=== PATIENT | female | born 1975 | race African-American/Black ===

== ENCOUNTER 2018-01-11 19:32 | Emergency (ER) | payer BC, MEDICAID ==
[~2018-01-11] VITALS: Ht 167.6 cm; Wt 57.0 kg
[2018-01-11] MEDS ORDERED: KETOROLAC 60MG/2ML VIAL IM ONE (21:30)
[2018-01-11] MEDS ORDERED: KETOROLAC 60MG/2ML VIAL IM NR (22:30)
[2018-01-11 23:16] VITALS: BP 128/82
== END 2018-01-11 23:17 | disposition home or self-care (01) ==
LOC: ER 19:32
DX: S16.1XXA Strain of muscle, fascia and tendon at neck level, initial encounter (principal); M79.642 Pain in left hand; M79.641 Pain in right hand; M19.90 Unspecified osteoarthritis, unspecified site; F17.200 Nicotine dependence, unspecified, uncomplicated; V49.40XA Driver injured in collision with unspecified motor vehicles in traffic accident, initial encounter; Y93.89 Activity, other specified; Y92.89 Other specified places as the place of occurrence of the external cause; Y99.8 Other external cause status
CPT/HCPCS: 72040; 81025; 96372; 99284; J1885

== ENCOUNTER 2018-02-03 17:09 | Emergency (ER) | payer BC, MEDICAID ==
[~2018-02-03] VITALS: Ht 165.1 cm; Wt 60.0 kg
[2018-02-03 17:14] VITALS: BP 117/81
[2018-02-03] MEDS ORDERED: ACETAMINOPHEN 325MG TABLET PO ONE (17:30)
== END 2018-02-03 19:17 | disposition left against medical advice (07) ==
LOC: ER 18:07
DX: M54.2 Cervicalgia (principal); M79.641 Pain in right hand; F17.200 Nicotine dependence, unspecified, uncomplicated; Y04.0XXA Assault by unarmed brawl or fight, initial encounter; Y93.89 Activity, other specified; Y92.89 Other specified places as the place of occurrence of the external cause; Y99.8 Other external cause status
CPT/HCPCS: 73130; 81025; 99284